=== PATIENT | male | born 1960 | race Hispanic/Latino ===

== ENCOUNTER 2020-12-18 11:44 | Inpatient (IN) | payer SELFPAY ==
[2020-12-18 12:46] LABS: Absolute Lymphocytes (CBC) 0.7 K/uL (0.7-4.9); Basophils % 0.5 % (0-1.3); Hematocrit 37.9 % (39.6-49.0); RBC Red Blood Cell Count 4.26 M/uL (4.33-5.43)
[2020-12-18] MEDS ORDERED: ALBUTEROL 2.5 MG/3 ML NEB SOL ONE (12:51)
[2020-12-18] MEDS ORDERED: IPRATROPIUM BROM 0.5MG/2.5ML ONE (12:51)
[2020-12-18] MEDS ORDERED: METHYLPREDNISOLONE 125 MG INJ ONE (12:51)
[2020-12-18 13:06] LABS: Protime INR 1.3
[2020-12-18] MEDS ORDERED: NA CHLORIDE 0.9% 500 ML ONE (13:09)
[2020-12-18] MEDS ORDERED: CEFTRIAXONE/SWI 1gm 1 GM/10 ML SYR ONE (13:09)
[2020-12-18 13:16] LABS: Blood Morphology Comment NOT SEEN (NOT SEEN); Platelet Estimate INCR
[2020-12-18 13:29] LABS: ALT/SGPT 111 U/L (12-78); AST/SGOT 75 U/L (15-37); Albumin 2.7 g/dL (3.4-5.0); Alkaline Phosphatase 95 U/L (45-117); Amylase 47 U/L (25-115); BUN Blood Urea Nitrogen 42 mg/dL (7-18); Bicarbonate 20 mmol/L (21-32); Bilirubin Direct 0.4 mg/dL (0-0.2); Bilirubin Total 0.8 mg/dL (0.2-1.0); CKMB Creatine Kinase MB < 1.0 ng/mL (0.3-3.6); Creatine Phosphokinase 50 U/L (39-308); Ferritin 1544.8 ng/mL (26-388); Glucose Level 177 mg/dL (74-106); Lipase 185 U/L (73-393); Potassium 3.7 mmol/L (3.5-5.1); Sodium Level 137 mmol/L (136-145); Troponin (Emerg Dept Use Only) 0.08 ng/mL (0.0-0.045)
--- NOTE | 2020-12-18 14:22 | RAD REPORT ---
EXAM DESCRIPTION: CT - Chest For Pe Angio - 12/18/2020 1:58 pm CLINICAL HISTORY: sob COMPARISON: None. TECHNIQUE: Dynamically enhanced axial 3 mm thick images of the chest were obtained during administra tion of <100> mL Isovue 370 IV contrast. Coronal and oblique reconstruction images were generated and reviewed. Exam utilizes a protocol for optimal evaluation of pulmonary arterial tree. Maximum intensity projections 3D imaging was utilized All CT scans are performed using dose optimization technique as appropriate and may include automated exposure control or mA/KV adjustment according to patient size. FINDINGS: A pulmonary embolus is not seen. A thoracic aortic aneurysm is not noted. A pleural effusion is not seen. Minimal pericardial effusion Marked bilateral ground-glass opacities. Fatty liver IMPRESSION: Negative for a pulmonary embolism. Marked bilateral ground-glass opacities likely Covid pneumonia
--- NOTE | 2020-12-18 14:22 | RAD REPORT ---
EXAM DESCRIPTION: [place] Single View12/18/2020 1:08 pm CLINICAL HISTORY: Chest pain COMPARISON: none FINDINGS: Marked bilateral pulmonary opacities. The heart is normal size IMPRESSION: Marked bilateral pulmonary opacities probably pneumonia
--- NOTE | 2020-12-18 14:33 | EDPHYS ---
Physician Documentation [facility] Rakesh Name: Yazan Regalado Age: 60 yrs Sex: Male : 1960 Arrival Date: 12/18/2020 Time: 11:49 Bed 3 Private MD: ED Physician Shin Carrillo HPI: 12/18 12:47 This 60 yrs old Male presents to ER via Wheelchair with complaints of Covid + pm1 and Shortness of Breath. 12:47 The patient has shortness of breath at rest. Onset: The symptoms/episode began/occurred pm1 2 day(s) ago. Duration: The symptoms are continuous. Associated signs and symptoms: Pertinent positives: cough and congestion, fever, fatigue. Severity of symptoms: in the emergency department the symptoms are worse. The patient has not experienced similar symptoms in the past. It is unknown whether or not the patient has recently seen a physician. Onset of cough, congestion, fatigue and fever 2 weeks ago. Tested positive for covid on 12/09/2020. SOB onset 2 days ago. No leg pain present. Reports pain to dorsum of left foot. Historical: - Allergies: 12:21 No Known Allergies; ss - Home Meds: 15:06 Amaryl 2 mg Oral tab 1 tab daily at 1500 [Active]; Edarbi 80 mg oral tab twice a day sv [Active]; finasteride 5 mg oral tab 1 tab once daily [Active]; autrin 600 mg daily [Active]; Janumet 50-1,000 mg oral tab 1 tab daily [Active]; xatral 10 mg daily [Active]; - PMHx: 12:21 Diabetes - NIDDM; High Cholesterol; Hypertension; ss - PSHx: 12:21 prostate CA; ss - Immunization history:: Adult Immunizations up to date. - Social history:: Smoking status: Patient denies any tobacco usage or history of. ROS: 12:47 Cardiovascular: Negative for chest pain, palpitations, and edema. pm1 12:47 Abdomen/GI: Negative for abdominal pain, nausea, vomiting, diarrhea, and constipation, Back: Negative for injury and pain, : Negative for injury, bleeding, discharge, and swelling. 12:47 Skin: Negative for injury, rash, and discoloration, Neuro: Negative for headache, weakness, numbness, tingling, and seizure. 12:47 Constitutional: Positive for fatigue, fever. 12:47 Respiratory: Positive for cough, shortness of breath. 12:47 MS/extremity: Positive for pain, of the dorsum of left foot, Negative for decreased range of motion, deformity. Exam: 12:47 Head/Face: Normocephalic, atraumatic. pm1 12:47 Skin: Warm, dry with normal turgor. Normal color with no rashes, no lesions, and no evidence of cellulitis. MS/ Extremity: Pulses equal, no cyanosis. Neurovascular intact. Full, normal range of motion. 12:47 Constitutional: The patient appears alert, awake, non-diaphoretic, non-toxic, well developed, well hydrated, well groomed, well nourished, Tachypneic 12:47 Cardiovascular: Rate: tachycardic, actual rate is 112 bpm, Rhythm: regular, Pulses: no pulse deficits are appreciated, Heart sounds: normal, normal S1and S2, Edema: is not appreciated. 12:47 Respiratory: mild respiratory distress is noted, Respirations: tachypnea, 28 Breath sounds: decreased breath sounds, that are mild, are located in both bases. 12:47 Abdomen/GI: Inspection: abdomen appears normal, Palpation: abdomen is soft and non-tender, in all quadrants. 12:47 Neuro: Exam negative for acute changes, Orientation: is normal, Mentation: is normal, Motor: is normal, moves all fours. Vital Signs: 12:17 Pulse Ox 66% on R/A; sv 12:21 BP 132 / 85; Pulse 112; Resp 28; Temp 98.0; Pulse Ox 82% on R/A; Height 5 ft. 6 in. ss (167.64 cm); Pain 6/10; 13:26 Pulse Ox 94% on 15% Non-rebreather mask; sv 14:12 BP 110 / 64; Pulse 104; Resp 30; Pulse Ox 89% on 15% Non-rebreather mask; sv 14:31 BP 119 / 72; Pulse 101; Resp 25; Pulse Ox 92% on 15% Non-rebreather mask; sv 15:07 BP 115 / 67; Pulse 90; Resp 28; Pulse Ox 92% on 15% Non-rebreather mask; sv MDM: 12:25 Patient medically screened. pm1 12:28 ED course: Sepsis IV bolus not given due to risk for pulmonary injury with pm1 administering too much fluids in covid-19 setting. Patient tested positive for covid. 12:33 ED course: No high flow oxygen available in the hospital per RT because we are wait pm1 list and hospital administration is aware. 14:28 Data reviewed: vital signs. pm1 14:28 Counseling: I had a detailed discussion with the patient and/or guardian regarding: the pm1 historical points, exam findings, and any diagnostic results supporting the discharge/admit diagnosis, lab results, radiology results, the need for further work-up and treatment in the hospital. 14:51 Physician consultation: Shin Sher MD was called at 14:51, was contacted at 14:51, pm1 regarding admission, patient's condition, and will see patient. 12/18 12:26 Order name: C-Reactive Protein pm1 12/18 12:26 Order name: D-Dimer pm12/18 12:26 Order name: Amylase, Serum pm12/18 12:26 Order name: Basic Metabolic Panel pm1 12/18 12:26 Order name: Blood Culture Adult (2) pm12/18 12:26 Order name: CBC with Diff pm1 12/18 12:26 Order name: Ckmb pm1 12/18 12:26 Order name: CPK pm1 12/18 12:26 Order name: Lactate pm12/18 12:26 Order name: LFT's pm12/18 12:26 Order name: Lipase pm1 12/18 12:26 Order name: Procalcitonin pm12/18 12:26 Order name: Protime (+inr) pm12/18 12:26 Order name: Ptt, Activated pm12/18 12:26 Order name: Troponin (emerg Dept Use Only) pm12/18 12:26 Order name: Urine Microscopic Only pm1 12/18 12:26 Order name: Ferritin; Complete Time: 14:27 pm1 12/18 12:26 Order name: Strep; Complete Time: 14:27 pm1 12/18 12:27 Order name: C-Reactive Protein; Complete Time: 14:27 EDMS 12/18 12:27 Order name: D-Dimer; Complete Time: 13:12 EDMS 12/18 12:27 Order name: Amylase; Complete Time: 14:27 EDMS 12/18 12:28 Order name: Basic Metabolic Panel; Complete Time: 14:27 EDMS 12/18 12:28 Order name: Blood Culture EDLA 12/18 12:28 Order name: CBC with Automated Diff; Complete Time: 14:27 EDMS 12/18 12:28 Order name: CKMB Creatine Kinase MB; Complete Time: 14:27 EDMS 12/18 12:28 Order name: Creatine Phosphokinase; Complete Time: 14:27 EDMS 12/18 12:28 Order name: Lactate; Complete Time: 13:12 EDMS 12/18 12:28 Order name: Liver (Hepatic) Function; Complete Time: 14:27 EDMS 12/18 12:28 Order name: Lipase; Complete Time: 14:27 EDLA 12/18 12:26 Order name: Chest Single View XRAY; Complete Time: 14:27 pm1 12/18 12:28 Order name: Procalcitonin; Complete Time: 14:27 EDLA 12/18 12:28 Order name: Protime (+INR); Complete Time: 13:12 EDLA 12/18 12:28 Order name: PTT, Activated Partial Thromb; Complete Time: 13:12 EDLA 12/18 12:28 Order name: Troponin (Emerg Dept Use Only); Complete Time: 14:27 EDLA 12/18 12:28 Order name: Urine Microscopic Only EDLA 12/18 13:13 Order name: CT Chest For PE Angio; Complete Time: 14:27 pm1 12/18 13:17 Order name: Manual Differential; Complete Time: 14:27 EDLA 12/18 14:44 Order name: COVID-19/FLU A+B; Complete Time: 16:16 EDLA 12/18 15:23 Order name: CONS Pharmacy Consult EDLA 12/18 15:23 Order name: CONS Physician Consult EDLA 12/18 15:23 Order name: Heart Healthy EDLA 12/18 15:23 Order name: C-Reactive Protein EDLA 12/18 15:23 Order name: C-Reactive Protein EDLA 12/18 15:23 Order name: CBC with Automated Diff EDLA 12/18 15:23 Order name: CBC with Automated Diff EDLA 12/18 15:23 Order name: Comprehensive Metabolic Panel EDLA 12/18 15:23 Order name: Comprehensive Metabolic Panel EDLA 12/18 15:23 Order name: D-Dimer EDLA 12/18 15:23 Order name: D-Dimer EDLA 12/18 15:23 Order name: Ferritin EDLA 12/18 15:23 Order name: Ferritin EDLA 12/18 15:23 Order name: Protime (+INR) EDLA 12/18 15:23 Order name: Protime (+INR) EDLA 12/18 15:23 Order name: PTT, Activated Partial Thromb EDLA 12/18 15:23 Order name: PTT, Activated Partial Thromb EDLA 12/18 12:26 Order name: Cardiac monitoring; Complete Time: 12:47 pm1 12/18 12:26 Order name: EKG - Nurse/Tech; Complete Time: 13:49 pm12/18 12:26 Order name: IV Saline Lock - Large Bore; Complete Time: 12:47 pm1 12/18 12:26 Order name: Labs collected and sent; Complete Time: 12:47 pm1 12/18 12:26 Order name: O2 Per Protocol; Complete Time: 12:47 pm1 12/18 12:26 Order name: O2 Sat Monitoring; Complete Time: 12:47 pm12/18 12:55 Order name: Droplet/Contact Precautions; Complete Time: 12:57 pm1 Administered Medications: 12:47 Drug: SOLU-Medrol 125 mg Route: IVP; Site: left antecubital; sv 13:48 Follow up: Response: No adverse reaction sv 12:47 Drug: Albuterol - atroVENT (3:1) (2.5 mg - 0.5 mg) 3 ml Route: Nebulizer; sv 13:48 Follow up: Response: No adverse reaction sv 13:26 Drug: NS 0.9% 500 ml Route: IV; Rate: bolus; Site: left antecubital; sv 14:58 Follow up: Response: No adverse reaction; IV Status: Completed infusion; IV Intake: sv 500ml 13:26 Drug: Rocephin 1 grams Route: IV; Rate: calculated rate; Site: left antecubital; sv 13:28 Follow up: Response: No adverse reaction; IV Status: Completed infusion; IV Intake: 10mlsv 14:58 Drug: Zithromax 500 mg Route: IVPB; Infused Over: 1 hrs; Site: left antecubital; sv 16:12 Follow up: Response: No adverse reaction; IV Status: Completed infusion; IV Intake: sv 250ml Disposition: 12/18/20 14:32 Hospitalization ordered by Shin Sher for Inpatient Admission. Preliminary diagnosis are Pneumonia, unspecified organism - ., Coronavirus infection, unspecified, Streptococcal pharyngitis. - Bed requested for Intensive Care Unit. - Status is Inpatient Admission. dh3 - Condition is Fair. - Problem is new. - Symptoms have improved. Addendum: 12/19/2020 18:29 Co-signature as Attending Physician, Shin Carrillo MD. m a2 Signatures: Dispatcher [employer] EDLA Sandra Blanco RN RN sv Woody, Diana, Felipa Engel RN, RN RN ss Manny Garcia, DRAFTER PLUMBING DRAFTER PLUMBING 1 Cristal Staples 3 Shin Carrillo MD MD ma2 Corrections: (The following items were deleted from the chart) 12/18 12:47 12:26 Accucheck ordered. pm1 sv 13:43 12:28 Influenza Screen (A \T\ B)+[id number].LAB.BRZ ordered. EDLA EDMS 16:37 14:32 Hospitalization Ordered by Shin Sher MD for Inpatient Admission. Preliminary dw diagnosis is Pneumonia, unspecified organism - .; Coronavirus infection, unspecified; Streptococcal pharyngitis. Bed requested for Telemetry/MedSurg (Inpatient). Status is Inpatient Admission. Condition is Fair. Problem is new. Symptoms have improved. pm1 17:23 16:37 12/18/2020 14:32 Hospitalization Ordered by Shin Sher MD for Inpatient dh3 Admission. Preliminary diagnosis is Pneumonia, unspecified organism - .; Coronavirus infection, unspecified; Streptococcal pharyngitis. Bed requested for Intensive Care Unit. Status is Inpatient Admission. Condition is Fair. Problem is new. Symptoms have improved. dw
--- NOTE | 2020-12-18 14:33 | ER ---
Nurse's Notes [facility] Rakesh Name: Yazan Regalado Age: 60 yrs Sex: Male : 1960 Arrival Date: 12/18/2020 Time: 11:49 Bed 3 Private MD: Diagnosis: Pneumonia, unspecified organism-.;Coronavirus infection, unspecified;Streptococcal pharyngitis Presentation: 12/18 12:21 Chief complaint: Patient states: Covid positive 12/09/20. SOB for 2 days. + L leg pain ss for 2 days. Coronavirus screen: Client denies travel out of the [place] in the last 14 days. congestion, cough unrelated to allergies, difficulty breathing, fatigue, fever, shortness of breath, Client presents with at least one sign or symptom that may indicate coronavirus-19. Standard/surgical mask placed on the client. Client reports previous positive COVID test result. Ebola Screen: Patient denies travel to an Ebola-affected area in the 21 days before illness onset. Initial Sepsis Screen: Does the patient meet any 2 criteria? RR > 20 per min. HR > 90 bpm. Yes Does the patient have a suspected source of infection? Yes: Productive cough/pneumonia. Risk Assessment: Do you want to hurt yourself or someone else? Patient reports no desire to harm self or others. Onset of symptoms was December 16, 2020. 12:21 Method Of Arrival: Wheelchair ss 12:21 Acuity: EVARISTO 2 ss Historical: - Allergies: 12:21 No Known Allergies; ss - Home Meds: 15:06 Amaryl 2 mg Oral tab 1 tab daily at 1500 [Active]; Edarbi 80 mg oral tab twice a day sv [Active]; finasteride 5 mg oral tab 1 tab once daily [Active]; autrin 600 mg daily [Active]; Janumet 50-1,000 mg oral tab 1 tab daily [Active]; xatral 10 mg daily [Active]; - PMHx: 12:21 Diabetes - NIDDM; High Cholesterol; Hypertension; ss - PSHx: 12:21 prostate CA; ss - Immunization history:: Adult Immunizations up to date. - Social history:: Smoking status: Patient denies any tobacco usage or history of. Screenin:30 Abuse screen: Denies threats or abuse. Denies injuries from another. Nutritional sv screening: No deficits noted. Tuberculosis screening: No symptoms or risk factors identified. Fall Risk None identified. Assessment: 12:15 General: Appears in no apparent distress. uncomfortable, well developed, Behavior is sv calm, cooperative, appropriate for age. General: Reports fatigue for >3 days. Pain: Complains of pain in throat Pain currently is 6 out of 10 on a pain scale. Neuro: Level of Consciousness is awake, alert, obeys commands, Oriented to person, place, time, situation, Moves all extremities. Full function. Cardiovascular: Patient's skin is warm and dry. Rhythm is sinus tachycardia. Respiratory: Reports shortness of breath on exertion cough that is non-productive, labored breathing Airway is patent Respiratory effort is even, labored, Respiratory pattern is symmetrical, tachypnea. Derm: Skin is intact, Skin is pink, warm \T\ dry. Musculoskeletal: Range of motion: intact in all extremities. 12:47 Reassessment: Patient appears in no apparent distress at this time. Patient and/or sv family updated on plan of care and expected duration. Pain level reassessed. Patient is alert, oriented x 3, equal unlabored respirations, skin warm/dry/pink. 13:26 Reassessment: Patient appears in no apparent distress at this time. Patient and/or sv family updated on plan of care and expected duration. Pain level reassessed. Patient is alert, oriented x 3, equal unlabored respirations, skin warm/dry/pink. 14:02 Reassessment: Patient appears in no apparent distress at this time. Patient and/or sv family updated on plan of care and expected duration. Pain level reassessed. Patient is alert, oriented x 3, equal unlabored respirations, skin warm/dry/pink. 15:07 Reassessment: Patient appears in no apparent distress at this time. Patient and/or sv family updated on plan of care and expected duration. Pain level reassessed. Patient is alert, oriented x 3, equal unlabored respirations, skin warm/dry/pink. Respiratory: Respiratory effort is even, unlabored, Respiratory pattern is symmetrical, tachypnea. 16:11 Reassessment: Patient appears in no apparent distress at this time. Patient and/or sv family updated on plan of care and expected duration. Pain level reassessed. Patient is alert, oriented x 3, equal unlabored respirations, skin warm/dry/pink. Patient states feeling better. 16:58 Reassessment: Patient appears in no apparent distress at this time. Patient and/or sv family updated on plan of care and expected duration. Pain level reassessed. Patient states feeling better. Vital Signs: 12:17 Pulse Ox 66% on R/A; sv 12:21 BP 132 / 85; Pulse 112; Resp 28; Temp 98.0; Pulse Ox 82% on R/A; Height 5 ft. 6 in. ss (167.64 cm); Pain 6/10; 13:26 Pulse Ox 94% on 15% Non-rebreather mask; sv 14:12 BP 110 / 64; Pulse 104; Resp 30; Pulse Ox 89% on 15% Non-rebreather mask; sv 14:31 BP 119 / 72; Pulse 101; Resp 25; Pulse Ox 92% on 15% Non-rebreather mask; sv 15:07 BP 115 / 67; Pulse 90; Resp 28; Pulse Ox 92% on 15% Non-rebreather mask; sv ED Course: 11:49 Patient arrived in ED. ds1 12:20 Manny Garcia NP is PHCP. pm1 12:20 Shin Carrillo MD is Attending Physician. pm1 12:20 Patient has correct armband on for positive identification. Placed in gown. Bed in low sv position. Call light in reach. Side rails up X 1. cookie breaker on. Pulse ox on. NIBP on. Door closed. Head of bed elevated. 12:20 First set of blood cultures drawn by me. sv 12:21 Arm band placed on Patient placed in an exam room, on a stretcher. ss 12:23 Triage completed. ss 12:30 Second set of blood cultures drawn by me. Inserted saline lock: 18 gauge in left sv antecubital area, using aseptic technique. Blood collected. Flushed left antecubital with 5 ml normal saline. 12:38 Sandra Blanco, [place] is Primary Nurse. sv 12:48 C-Reactive Protein Sent. sv 12:48 D-Dimer Sent. sv 12:48 Amylase, Serum Sent. sv 12:48 Basic Metabolic Panel Sent. sv 12:48 Blood Culture Adult (2) Sent. sv 12:48 CBC with Diff Sent. sv 12:48 Ckmb Sent. sv 12:48 CPK Sent. sv 12:48 Lactate Sent. sv 12:48 LFT's Sent. sv 12:48 Lipase Sent. sv 12:48 Procalcitonin Sent. sv 12:49 Protime (+inr) Sent. sv 12:49 Ptt, Activated Sent. sv 12:49 Troponin (emerg Dept Use Only) Sent. sv 12:50 X-ray(s) taken. sv 12:51 Chest Single View XRAY Sent. sv 13:08 Chest Single View XRAY In Process Unspecified. EDMS 13:10 Notified Nurse Practitioner and/or Physician [employer] of a critical lab result(s), ss [id number]. 13:10 Flu and/or RSV swab sent to lab. Strep swab sent to lab. sv 13:18 EKG done, by ED staff, reviewed by Shin Carrillo MD. ss 13:42 Flu and/or RSV swab sent to lab. Strep swab sent to lab. jp3 13:[address] via stretcher. sv 13:58 CT Chest For PE Angio In Process Unspecified. EDMS 14:[address]. sv 14:05 Awaiting lab results, Awaiting radiology results. sv 14:31 Shin Sher MD is Hospitalizing Provider. pm1 15:32 Awaiting bed assignment. sv 16:57 No provider procedures requiring assistance completed. Patient admitted, IV remains in sv place. intact. Administered Medications: 12:47 Drug: SOLU-Medrol 125 mg Route: IVP; Site: left antecubital; sv 13:48 Follow up: Response: No adverse reaction sv 12:47 Drug: Albuterol - atroVENT (3:1) (2.5 mg - 0.5 mg) 3 ml Route: Nebulizer; sv 13:48 Follow up: Response: No adverse reaction sv 13:26 Drug: NS 0.9% 500 ml Route: IV; Rate: bolus; Site: left antecubital; sv 14:58 Follow up: Response: No adverse reaction; IV Status: Completed infusion; IV Intake: sv 500ml 13:26 Drug: Rocephin 1 grams Route: IV; Rate: calculated rate; Site: left antecubital; sv 13:28 Follow up: Response: No adverse reaction; IV Status: Completed infusion; IV Intake: 10mlsv 14:58 Drug: Zithromax 500 mg Route: IVPB; Infused Over: 1 hrs; Site: left antecubital; sv 16:12 Follow up: Response: No adverse reaction; IV Status: Completed infusion; IV Intake: sv 250ml Intake: 13:28 IV: 10ml; Total: 10ml. sv 14:58 IV: 500ml; Total: 510ml. sv 16:12 IV: 250ml; Total: 760ml. sv Outcome: 14:32 Decision to Hospitalize by Provider. pm1 16:57 Admitted to ICU accompanied by tech, via stretcher, room 6, with oxygen, on monitor, sv with chart, Report called to Kell [place] 16:57 Condition: stable 16:57 Instructed on the need for admit. 17:23 Patient left the ED. 3 Signatures: Dispatcher [employer] Sandra Pederson RN Polly Rankin ds1 Felipa Oscar RN RN Manny Blanco, SPA DIRECTOR SPA DIRECTOR pm1 Cristal Staples 3 Jason Delgadillo 3 Corrections: (The following items were deleted from the chart) 13:42 13:42 COVID swab sent to lab. ca3 jp3
[2020-12-18 14:44] LABS: SARS-COV-2 RT PCR POSITIVE (NEGATIVE)
[2020-12-18] MEDS ORDERED: AZITHROMYCIN IV 500 MG in NA CHLORIDE 0.9% 250 ML IVPB ONE (15:00)
[2020-12-18] MEDS ORDERED: ACETAMINOPHEN 500 MG TAB PO PRN (15:16)
[2020-12-18] MEDS ORDERED: ONDANSETRON 4 MG/2 ML VIAL IV PRN (15:16)
[2020-12-18] MEDS ORDERED: MORPHINE 2 MG/ML SYR IV PRN (15:16)
[2020-12-18] MEDS: NA CHLORIDE 0.9% 1,000 ML IV SCH (16:00)
[2020-12-18] MEDS ORDERED: IVERMECTIN 3 MG TABLET PO ONE (16:00)
--- NOTE | 2020-12-18 20:36 | P.HP ---
Certification for Inpatient Patient admitted to: Inpatient With expected LOS: >2 Midnights Patient will require the following post-hospital care: None Practitioner: I am a practitioner with admitting privileges, knowledge of patient current condition, hospital course, and medical plan of care. Services: Services provided to patient in accordance with Admission requirements found in Title 42 Section 412.3 of the Code of Federal Regulations Patient History Date of Service: 12/18/20 Reason for admission: Shortness of breath/COVID-19 pneumonia History of Present Illness: Patient is a 60-year-old gentleman who came to the hospital with shortness of breath. Patient was found have COVID-19 pneumonia. Patient was started on 100% non-rebreather. Patient was started on IV steroids and was also given ivermectin. Patient will be admitted to ICU & he is requiring a large amount of oxygen. Patient will be continued with high-flow oxygen and we will get pulmonary consultation. Patient's history of diabetes and hypertension. Strict blood sugar and blood pressure control. Patient be admitted to the intensive care unit for further evaluation. Allergies No Known Allergies Allergy (Verified 12/18/20 15:45) Home Medications: Autrin 600 mg PO DAILY 12/18/20 Azilsartan Medoxomil [Edarbi] 80 mg PO BID 12/18/20 Finasteride [Proscar] 5 mg PO DAILY 12/18/20 Glimepiride [Amaryl] 2 mg PO DAILY 12/18/20 Sitagliptin Phos/Metformin HCl [Janumet 50-1,000 mg Tablet] 1 each PO DAILY 12/18/20 Xatral 10 mg PO DAILY 12/18/20 - Past Medical/Surgical History Has patient received pneumonia vaccine in the past: No Diabetic: Yes -: NIDDM -: HLD -: HTN -: Prostate CA in remission for 6 years -: throat tumor removal - Family History Mother Medical History: Heart disease, Hypertension, Lung disease, Diabetes Father Medical History: Heart disease, Hypertension, GI disease, Diabetes - Social History Smoking Status: Never smoker Alcohol use: Yes CD- Drugs: No Caffeine use: No Place of Residence: Home Review of Systems 10-point ROS is otherwise unremarkable Physical Examination - Vital Signs Temperature: 98.0 F Blood Pressure: 128/80 Pulse: 89 Respirations: 26 Pulse Ox (%): 94 - Physical Exam General: Alert, In no apparent distress, Oriented x3 HEENT: Atraumatic, PERRLA, Mucous membr. moist/pink, EOMI, Sclerae nonicteric Neck: Supple, 2+ carotid pulse no bruit, No LAD, Without JVD or thyroid abnormality Respiratory: Diminished, Rhonchi/gurgles Cardiovascular: Regular rate/rhythm, Normal S1 S2, No murmurs Gastrointestinal: Normal bowel sounds, Soft and benign, Non-distended, No tenderness Musculoskeletal: No clubbing, No swelling, No tenderness Integumentary: No rashes Neurological: Normal gait, Normal speech, Normal strength at 5/5 x4 extr, Normal tone, Normal affect Lymphatics: No axilla or inguinal lymphadenopathy - Studies Laboratory Data (last 24 hrs) 12/18/20 12:30: WBC 13.90 H, Hgb 12.4 L, Hct 37.9 L, Plt Count 442 H 12/18/20 12:30: Sodium 137, Potassium 3.7, BUN 42 H, Creatinine 1.21, Glucose 177 H, Total Bilirubin 0.8, AST 75 H, ALT 111 H, Alkaline Phosphatase 95, Amylase 47, Lipase 185 12/18/20 12:26: PT 15.4 H, INR 1.30, APTT 23.1 L Microbiology Data (last 24 hrs): 12/18/20 12:26 Throat Group A Streptococcus Rapid Screen - Final Assessment & Plan - Problems (Diagnosis) (1) Pneumonia due to COVID-19 virus Current Visit: Yes Status: Acute (2) Hypoxemia Current Visit: Yes Status: Acute (3) History of hypertension Current Visit: Yes Status: Acute (4) History of type 2 diabetes mellitus Current Visit: Yes Status: Acute - Plan 1. Continue with IV steroids 2. High-flow oxygen 3. Repeat chest x-ray is symptoms are progressively worsening 4. Ivermectin 5. Pulmonary consultation 6. Continue with albuterol inhaler therapy; may benefit from Remdesivir 7. O2 per protocol 8. Monitor LFTs 9. Repeat labs including D-dimer, ferritin, and CRP and LFTs 10. GI and DVT prophylaxis Discharge Plan: Home Plan to discharge in: Greater than 2 days - Advance Directives Does patient have a Living Will: No Does patient have a Durable POA for Healthcare: No - Code Status/Comfort Care Code Status Assessed: Yes Code Status: Full Code Critical Care: Yes Time Spent Managing PTS Care (In Minutes): 45
[2020-12-18] MEDS: FAMOTIDINE 20 MG/2 ML VIAL IV SCH (20:54)
[2020-12-18] MEDS: APIXABAN 5 MG TABLET PO SCH (20:54)
[2020-12-18] MEDS: METHYLPREDNISOLONE 125 MG INJ IV SCH (20:54)
[2020-12-18] MEDS ORDERED: GLUCAGON 1 MG/VIAL IM PRN (21:19)
[2020-12-18] MEDS ORDERED: D50W 25 GM/50 ML SYRINGE IV PRN (21:19)
[2020-12-18] MEDS: GUAIFENESIN/CODEINE 5ML UCUP PO PRN (21:38)
[2020-12-18] MEDS: INSULIN -REGULAR HUMAN 50 UNIT/0.5 ML ML SQ SCH (21:39)
[2020-12-18 21:49] LABS: Urine Appearance CLEAR; Urine Bilirubin NEGATIVE (NEG); Urine Blood NEGATIVE (NEG); Urine Color YELLOW; Urine Glucose 2+ (NEG); Urine Protein NEGATIVE (NEG); Urine Specific Gravity >=1.030 (1.005-1.030); Urine Urobilinogen 0.2 mg/dL (0.2-1.0); Urine pH 5.5 (5.0-7.0)
[2020-12-18 21:59] LABS: Urine Bacteria <20 /HPF (NONE SEEN); Urine RBC NONE SEEN /HPF (NONE SEEN)
[2020-12-19 05:13] LABS: Absolute Lymphocytes (CBC) 0.6 K/uL (0.7-4.9); Basophils % 0.3 % (0-1.3); Hematocrit 33.7 % (39.6-49.0); Lymphocytes % 5.6 % (15.3-44.8); MPV 8.1 fL (7.6-11.3)
[2020-12-19 05:45] LABS: Albumin 2.3 g/dL (3.4-5.0); Bilirubin Total 0.4 mg/dL (0.2-1.0); Ferritin 1544.8 ng/mL (26-388); Potassium 3.6 mmol/L (3.5-5.1); Protein, Total 7.2 g/dL (6.4-8.2)
[2020-12-19] MEDS: GUAIFENESIN/CODEINE 5ML UCUP PO PRN ×3 (05:46→21:10)
[2020-12-19] MEDS: NA CHLORIDE 0.9% 1,000 ML IV SCH (05:46)
[2020-12-19 06:04] LABS: Protime INR 1.5
[2020-12-19] MEDS: INSULIN -REGULAR HUMAN 50 UNIT/0.5 ML ML SQ SCH ×4 (08:44→21:08)
[2020-12-19] MEDS ORDERED: Remdesivir 200 MG in NA CHLORIDE 0.9% 250 ML IV ONE (08:45)
[2020-12-19] MEDS: APIXABAN 5 MG TABLET PO SCH ×2 (08:46→21:07)
[2020-12-19] MEDS: METHYLPREDNISOLONE 125 MG INJ IV SCH ×3 (08:46→21:09)
[2020-12-19] MEDS: FAMOTIDINE 20 MG/2 ML VIAL IV SCH ×2 (08:46→21:09)
[2020-12-19] MEDS ORDERED: INSULIN -REGULAR HUMAN 50 UNIT/0.5 ML ML SQ SCH ×2 (11:25→11:44)
[2020-12-19] MEDS ORDERED: FUROSEMIDE 20 MG/ 2ML VIAL IV ONE (12:42)
--- NOTE | 2020-12-19 12:44 | P.CNS ---
Date of Consult: 12/19/20 Reason for Consult: Respiratory failure from quick virus Chief Complaint: Shortness of breath/COVID-19 pneumonia History of Present Illness: Patient is 60 years of age admitted with shortness of breath and quick virus pneumonia is currently on high-flow oxygen has history of diabetes hypertension Still requiring high concentrations of oxygen Allergies No Known Allergies Allergy (Verified 12/18/20 15:45) Home Medications: Autrin 600 mg PO DAILY 12/18/20 Azilsartan Medoxomil [Edarbi] 80 mg PO BID 12/18/20 Finasteride [Proscar] 5 mg PO DAILY 12/18/20 Glimepiride [Amaryl] 2 mg PO DAILY 12/18/20 Sitagliptin Phos/Metformin HCl [Janumet 50-1,000 mg Tablet] 1 each PO DAILY 12/18/20 Xatral 10 mg PO DAILY 12/18/20 - Past Medical/Surgical History Diabetic: Yes -: NIDDM -: HLD -: HTN -: Prostate CA in remission for 6 years -: throat tumor removal - Family History Mother Medical History: Heart disease, Hypertension, Lung disease, Diabetes Father Medical History: Heart disease, Hypertension, GI disease, Diabetes - Social History Alcohol use: Yes CD- Drugs: No Caffeine use: No Place of Residence: Home Review of Systems is unable to be obtained Physical Examination Temp Pulse Resp BP Pulse Ox 97.3 F 81 20 124/78 91 12/19/20 12:00 12/19/20 12:00 12/19/20 12:00 12/19/20 12:00 12/19/20 12:00 General: Alert, Mild distress Respiratory: Clear to auscultation bilaterally, Diminished Laboratory Data (last 24 hrs) 12/18/20 12:30: WBC 13.90 H, Hgb 12.4 L, Hct 37.9 L, Plt Count 442 H 12/18/20 12:30: Sodium 137, Potassium 3.7, BUN 42 H, Creatinine 1.21, Glucose 177 H, Total Bilirubin 0.8, AST 75 H, ALT 111 H, Alkaline Phosphatase 95, Amylase 47, Lipase 185 12/18/20 12:26: PT 15.4 H, INR 1.30, APTT 23.1 L - Problems (1) Pneumonia due to COVID-19 virus Current Visit: Yes Status: Acute Plan: Patient is 60 years of age admitted with respiratory failure from quick virus white count normal pro calcitonin level elevated CT scan shows diffuse bilateral ground-glass changes consistent with pulmonary embolism change to p.o. level Floxin continue with high doses of steroids patient has had a dose of ivermectin 1 dose of Lasix increase Solu-Medrol to 3 times a day cultures negative
[2020-12-19] MEDS: levoFLOXacin 500 MG TAB PO SCH (13:07)
--- NOTE | 2020-12-19 15:58 | P.PN ---
Subjective Date of Service: 12/19/20 Chief Complaint: Shortness of breath/COVID-19 pneumonia Subjective: Other (Slight improvement noted) Physical Examination - Vital Signs Temperature: 97.3 F Blood Pressure: 129/90 Pulse: 86 Respirations: 26 Pulse Ox (%): 90 - Physical Exam General: Alert HEENT: Atraumatic Neck: Supple Respiratory: Other (On high-flow oxygen 90%) Cardiovascular: Normal pulses Neurological: Normal speech, Normal strength at 5/5 x4 extr, Normal tone, Normal affect - Studies Microbiology Data (last 24 hrs): 12/18/20 12:26 Throat Group A Streptococcus Rapid Screen - Final Medications List Reviewed: Yes Assessment & Plan Discharge Plan: Home Plan to discharge in: Greater than 2 days Physician Review Additional Text: Impression: Dyspnea secondary to acute respiratory failure with hypoxia related to bilateral COVID 19 pneumonia Diabetes mellitus type 2 with hyperglycemia Hypertension BPH Plan: Dyspnea secondary to acute respiratory failure with hypoxia related to bilateral COVID 19 pneumonia: Continue IV steroids. Patient on DVT prophylaxis. Discuss the possibility of initiating Remdesivir. Side effect profile and understanding of medication addressed in detail. Patient wishes to start medication. Continue high-flow oxygen. Continue to wean off nasal cannula. Encourage incentive spirometer. Encourage ambulation. Encourage protein. Case discussed with pulmonology. Continue to monitor lab closely. Monitor ferritin and CRP. Anticipate improvement over the next 72 hr. Diabetes mellitus type 2 with hyperglycemia: Restart home medication of glipizide, Januvia and metformin. Continue sliding scale. Consider basal insulin if blood sugars are still out of control. Hypertension: Blood pressure stable. Hold off on oral medication BPH: Restart medication Time Spent Managing Pts Care (In Minutes): 55
[2020-12-19] MEDS: METFORMIN HCL 500 MG TAB PO SCH (17:17)
[2020-12-20 05:41] LABS: Albumin 2.4 g/dL (3.4-5.0); Bilirubin Direct 0.2 mg/dL (0-0.2); Bilirubin Total 0.4 mg/dL (0.2-1.0); Ferritin 1645.8 ng/mL (26-388); Protein, Total 6.8 g/dL (6.4-8.2)
[2020-12-20] MEDS: GLIMEPIRIDE 2 MG TABLET PO SCH (08:13)
[2020-12-20] MEDS: FAMOTIDINE 20 MG/2 ML VIAL IV SCH ×2 (08:14→20:05)
[2020-12-20] MEDS: METHYLPREDNISOLONE 125 MG INJ IV SCH (08:14)
[2020-12-20] MEDS: APIXABAN 5 MG TABLET PO SCH ×2 (08:14→20:05)
[2020-12-20] MEDS: METFORMIN HCL 500 MG TAB PO SCH ×2 (08:14→16:51)
[2020-12-20] MEDS: levoFLOXacin 500 MG TAB PO SCH (08:14)
[2020-12-20] MEDS: SITAGLIPTIN PHOS 100 MG TAB PO SCH (08:14)
[2020-12-20] MEDS: FINASTERIDE 5 MG TAB PO SCH (08:14)
[2020-12-20] MEDS: INSULIN -REGULAR HUMAN 50 UNIT/0.5 ML ML SQ SCH ×4 (08:15→20:28)
--- NOTE | 2020-12-20 08:23 | P.PN ---
Subjective Date of Service: 12/20/20 Chief Complaint: Respiratory failure Subjective: Improving (Improving oxygen requirements have declined he is feeling well) Review of Systems General: Weakness Respiratory: Shortness of Breath Physical Examination - Vital Signs Temperature: 97.3 F Blood Pressure: 142/71 Pulse: 56 Respirations: 19 Pulse Ox (%): 90 - Studies Medications List Reviewed: Yes Assessment & Plan - Problems (Diagnosis) (1) Pneumonia due to COVID-19 virus Current Visit: Yes Status: Acute Plan: Respiratory failure oxygen requirements have been declining blood sugars elevated added multi vitamin repeat dose of ivermectin
[2020-12-20] MEDS ORDERED: IVERMECTIN 3 MG TABLET PO ONE (09:00)
[2020-12-20] MEDS: ASCORBIC ACID 500 MG TABLET PO SCH ×3 (09:20→20:05)
[2020-12-20] MEDS: ZINC SULFATE 220 MG CAP PO SCH (09:20)
[2020-12-20] MEDS: Remdesivir 100 MG in NA CHLORIDE 0.9% 250 ML IV SCH (09:20)
[2020-12-20] MEDS: THIAMINE HCL 100 MG TABLET PO SCH ×2 (09:21→20:05)
[2020-12-20] MEDS: GUAIFENESIN/CODEINE 5ML UCUP PO PRN ×3 (09:30→21:05)
--- NOTE | 2020-12-20 12:27 | P.PN ---
Subjective Date of Service: 12/20/20 Chief Complaint: Respiratory failure Subjective: Other (Slow improvement noted. Currently on high-flow at 75%) Physical Examination - Vital Signs Temperature: 97.3 F Blood Pressure: 114/60 Pulse: 89 Respirations: 23 Pulse Ox (%): 91 - Physical Exam General: Alert, Cooperative HEENT: Atraumatic Respiratory: Other (High-flow oxygen at 75%. Continued improvement noted) Cardiovascular: Normal pulses Neurological: Normal speech, Normal strength at 5/5 x4 extr, Normal tone, Normal affect - Studies Medications List Reviewed: Yes Assessment & Plan Discharge Plan: Home Plan to discharge in: Greater than 2 days Physician Review Additional Text: Impression: Dyspnea secondary to acute respiratory failure with hypoxia related to bilateral COVID 19 pneumonia Diabetes mellitus type 2 with hyperglycemia Hypertension BPH Plan: Dyspnea secondary to acute respiratory failure with hypoxia related to bilateral COVID 19 pneumonia: Continue IV steroids, Remdesivir, and supplements. Patient on DVT prophylaxis. Continue wean off high-flow oxygen to nasal cannula. Respiratory to continue weaning in process. Encourage incentive spirometer. Encourage ambulation. Encourage protein. Case discussed with pulmonology. Continue to monitor lab closely. Monitor ferritin and CRP. Anticipate improvement over the next 72 hr. Diabetes mellitus type 2 with hyperglycemia: Hemoglobin A1c 6.9. Continue home medication glipizide, Januvia and metformin. Continue sliding scale. Consider basal insulin if blood sugars are still out of control by tomorrow. Hypertension: Blood pressure stable. Hold off on oral medication BPH: Continue home medication Time Spent Managing Pts Care (In Minutes): 55
[2020-12-20] MEDS: METHYLPREDNISOLONE 40 MG INJ IV SCH ×2 (13:52→20:04)
[2020-12-20] MEDS: MELATONIN 5 MG TABLET PO SCH (20:05)
[2020-12-21] MEDS: GUAIFENESIN/CODEINE 5ML UCUP PO PRN ×2 (04:50→16:26)
[2020-12-21 05:40] LABS: Albumin 2.6 g/dL (3.4-5.0); Bilirubin Direct 0.2 mg/dL (0-0.2); Bilirubin Total 0.5 mg/dL (0.2-1.0); C-Reactive Protein 48.9 mg/L (<3.00); Ferritin 1340.7 ng/mL (26-388); Protein, Total 6.7 g/dL (6.4-8.2)
[2020-12-21] MEDS: INSULIN -REGULAR HUMAN 50 UNIT/0.5 ML ML SQ SCH ×4 (08:14→20:54)
[2020-12-21] MEDS: ASCORBIC ACID 500 MG TABLET PO SCH ×3 (08:14→20:54)
[2020-12-21] MEDS: FINASTERIDE 5 MG TAB PO SCH (08:14)
[2020-12-21] MEDS: APIXABAN 5 MG TABLET PO SCH ×2 (08:14→20:53)
[2020-12-21] MEDS: GLIMEPIRIDE 2 MG TABLET PO SCH (08:14)
[2020-12-21] MEDS: levoFLOXacin 500 MG TAB PO SCH (08:14)
[2020-12-21] MEDS: THIAMINE HCL 100 MG TABLET PO SCH ×2 (08:14→20:53)
[2020-12-21] MEDS: METFORMIN HCL 500 MG TAB PO SCH ×2 (08:14→17:03)
[2020-12-21] MEDS: SITAGLIPTIN PHOS 100 MG TAB PO SCH (08:15)
[2020-12-21] MEDS: FAMOTIDINE 20 MG/2 ML VIAL IV SCH (08:15)
[2020-12-21] MEDS: ZINC SULFATE 220 MG CAP PO SCH (08:16)
[2020-12-21] MEDS: METHYLPREDNISOLONE 40 MG INJ IV SCH ×3 (08:16→20:55)
--- NOTE | 2020-12-21 08:42 | P.PN ---
Subjective Date of Service: 12/21/20 Chief Complaint: Respiratory failure Subjective: Improving (Patient is doing better oxygen requirements decreasing) Review of Systems General: Weakness Respiratory: Shortness of Breath Physical Examination - Vital Signs Temperature: 97.1 F Blood Pressure: 101/69 Pulse: 67 Respirations: 16 Pulse Ox (%): 83 - Studies Medications List Reviewed: Yes Assessment & Plan - Problems (Diagnosis) (1) Pneumonia due to COVID-19 virus Current Visit: Yes Status: Acute Plan: Respiratory failure clinically improving continue to titrate O2 white count is declining
--- NOTE | 2020-12-21 09:06 | RAD REPORT ---
EXAM DESCRIPTION: RAD - Chest Single View - 12/21/2020 7:50 am CLINICAL HISTORY: Follow up COVID Chest pain. COMPARISON: Chest Single View dated 12/18/2020 FINDINGS: Portable technique limits examination quality. Moderate bilateral pulmonary opacities are noted, essentially stable since comparative study. The hea rt is upper limit normal in size. No displaced fractures. IMPRESSION: Stable chest since 12/18/2020.
[2020-12-21] MEDS: Remdesivir 100 MG in NA CHLORIDE 0.9% 250 ML IV SCH (09:36)
--- NOTE | 2020-12-21 09:55 | P.PN ---
Subjective Date of Service: 12/21/20 Chief Complaint: Respiratory failure Subjective: Other (Slow improvement noted) Physical Examination - Vital Signs Temperature: 97.1 F Blood Pressure: 94/56 Pulse: 117 Respirations: 28 Pulse Ox (%): 85 - Physical Exam General: Alert, Cooperative HEENT: Atraumatic Respiratory: Other (Currently on high-flow at 70% Fi02) Cardiovascular: Normal pulses, Regular rate/rhythm Neurological: Normal speech, Normal strength at 5/5 x4 extr, Normal tone, Normal affect - Studies Medications List Reviewed: Yes Assessment & Plan Discharge Plan: Home Plan to discharge in: 48 Hours Physician Review Additional Text: Impression: Dyspnea secondary to acute respiratory failure with hypoxia related to bilateral COVID 19 pneumonia Diabetes mellitus type 2 with hyperglycemia Hypertension BPH Plan: Dyspnea secondary to acute respiratory failure with hypoxia related to bilateral COVID 19 pneumonia: Slow improvement noted. Less oxygen requirement noted today. Currently on high-flow 70% Fi02. CRP and ferritin show improvement. Chest x-ray stable. Continue IV steroid, Remdesivir, and supplements. Patient on DVT prophylaxis-Eliquis. Continue to wean off high-flow oxygen to nasal cannula. Respiratory to continue weaning process. Encourage incentive spirometer. Encourage ambulation. Encourage proning. Case discussed with pulmonology who agrees with plan of care. Continue to monitor lab closely including ferritin and CRP. Anticipate improvement over the next 48 hr. Diabetes mellitus type 2 with hyperglycemia: Hemoglobin A1c 6.9. Continue home medication glipizide, Januvia and metformin. Continue sliding scale. Blood sugar stable Hypertension: Blood pressure stable. Hold off on oral medication BPH: Continue home medication Time Spent Managing Pts Care (In Minutes): 55
[2020-12-21] MEDS ORDERED: D50W 25 GM/50 ML VIAL IV PRN (14:46)
[2020-12-21] MEDS: LIDOCAINE 4% PATCH TOP SCH (17:10)
[2020-12-21] MEDS: FAMOTIDINE 20 MG TAB PO SCH (20:53)
[2020-12-21] MEDS: MELATONIN 5 MG TABLET PO SCH (20:54)
[2020-12-22 05:53] LABS: Albumin 2.4 g/dL (3.4-5.0); Bilirubin Direct 0.1 mg/dL (0-0.2); Bilirubin Total 0.5 mg/dL (0.2-1.0); C-Reactive Protein 26.5 mg/L (<3.00); Ferritin 963.1 ng/mL (26-388); Protein, Total 6.1 g/dL (6.4-8.2)
[2020-12-22] MEDS: FINASTERIDE 5 MG TAB PO SCH (08:42)
[2020-12-22] MEDS: SITAGLIPTIN PHOS 100 MG TAB PO SCH (08:42)
[2020-12-22] MEDS: ZINC SULFATE 220 MG CAP PO SCH (08:42)
[2020-12-22] MEDS: levoFLOXacin 500 MG TAB PO SCH (08:42)
[2020-12-22] MEDS: ASCORBIC ACID 500 MG TABLET PO SCH ×3 (08:42→20:31)
[2020-12-22] MEDS: LIDOCAINE 4% PATCH TOP SCH (08:42)
[2020-12-22] MEDS: GLIMEPIRIDE 2 MG TABLET PO SCH (08:42)
[2020-12-22] MEDS: METFORMIN HCL 500 MG TAB PO SCH ×2 (08:42→16:33)
[2020-12-22] MEDS: APIXABAN 5 MG TABLET PO SCH ×2 (08:42→20:31)
[2020-12-22] MEDS: FAMOTIDINE 20 MG TAB PO SCH ×2 (08:42→20:31)
[2020-12-22] MEDS: METHYLPREDNISOLONE 40 MG INJ IV SCH (08:43)
[2020-12-22] MEDS: INSULIN -REGULAR HUMAN 50 UNIT/0.5 ML ML SQ SCH ×4 (08:43→20:32)
[2020-12-22] MEDS: Remdesivir 100 MG in NA CHLORIDE 0.9% 250 ML IV SCH (08:43)
[2020-12-22] MEDS: GUAIFENESIN/CODEINE 5ML UCUP PO PRN (09:02)
--- NOTE | 2020-12-22 09:06 | P.PN ---
Subjective Date of Service: 12/22/20 Chief Complaint: Respiratory failure Subjective: Other (Patient is slowly improving. Patient on BiPAP at 60% Fi02.) Physical Examination - Vital Signs Temperature: 97.8 F Blood Pressure: 128/88 Pulse: 87 Respirations: 24 Pulse Ox (%): 88 - Studies Medications List Reviewed: Yes Assessment & Plan Discharge Plan: Home Plan to discharge in: 48 Hours Physician Review Additional Text: Physical Exam: Patient is alert, no acute distress Heart: Regular rate Lung: Patient currently on BiPAP at 60% FiO2. No distress noted GI: No abdominal pain. No distention noted Extremities: Good range of motion to the upper lower extremities without deficit. No edema to the lower extremities Impression: Dyspnea secondary to acute respiratory failure with hypoxia related to bilateral COVID 19 pneumonia Diabetes mellitus type 2 with hyperglycemia Hypertension BPH Plan: Dyspnea secondary to acute respiratory failure with hypoxia related to bilateral COVID 19 pneumonia: Patient continues to improve. Less oxygen requirement noted. Now on BiPAP 60% Fi02. Respiratory to continue to wean down to nasal cannula. Hopefully this can be done today. CRP and ferritin show improvement. Chest x-ray stable. Continue IV steroid, Remdesivir, and supplements. Patient on DVT prophylaxis-Eliquis. Encourage incentive spirometer. Encourage ambulation. Encourage proning. Will discuss with pulmonology. Continue to monitor lab closely including ferritin and CRP. Anticipate improvement over the next 24-48 hr. Diabetes mellitus type 2 with hyperglycemia: Hemoglobin A1c 6.9. Continue home medication glipizide, Januvia and metformin. Continue sliding scale. Blood sugar stable Hypertension: Blood pressure stable. Hold off on oral medication BPH: Continue home medication Time Spent Managing Pts Care (In Minutes): 55
[2020-12-22] MEDS: VITAMIN D 1000 UNIT TAB PO SCH (09:45)
[2020-12-22] MEDS: THIAMINE HCL 100 MG TABLET PO SCH ×2 (09:45→20:31)
--- NOTE | 2020-12-22 13:16 | P.PN ---
Subjective Date of Service: 12/22/20 Chief Complaint: Respiratory failure Subjective: Improving (Patient is improving oxygen requirements a declining) Review of Systems General: Weakness Respiratory: Shortness of Breath Physical Examination - Vital Signs Temperature: 97.8 F Blood Pressure: 145/100 Pulse: 89 Respirations: 21 Pulse Ox (%): 90 - Studies Medications List Reviewed: Yes Assessment & Plan - Problems (Diagnosis) (1) Pneumonia due to COVID-19 virus Current Visit: Yes Status: Acute Plan: Respiratory failure patient is improving continue to wean down to nasal cannula blood sugars reasonably controlled increase dose of sitagliptin
[2020-12-22] MEDS: METHYLPREDNISOLONE 125 MG INJ IV SCH ×2 (13:27→20:32)
[2020-12-22] MEDS: MELATONIN 5 MG TABLET PO SCH (20:31)
[2020-12-23 04:59] VITALS: BMI 33.7
[2020-12-23 05:43] LABS: Albumin 2.4 g/dL (3.4-5.0); Bilirubin Direct 0.2 mg/dL (0-0.2); Bilirubin Total 0.6 mg/dL (0.2-1.0); C-Reactive Protein 16.5 mg/L (<3.00); Ferritin 890.7 ng/mL (26-388); Protein, Total 6.2 g/dL (6.4-8.2)
[2020-12-23] MEDS: INSULIN -REGULAR HUMAN 50 UNIT/0.5 ML ML SQ SCH ×4 (07:45→20:59)
[2020-12-23] MEDS: LIDOCAINE 4% PATCH TOP SCH (07:46)
[2020-12-23] MEDS: METHYLPREDNISOLONE 125 MG INJ IV SCH ×3 (07:46→20:07)
[2020-12-23] MEDS: THIAMINE HCL 100 MG TABLET PO SCH ×2 (07:47→20:09)
[2020-12-23] MEDS: METFORMIN HCL 500 MG TAB PO SCH ×2 (07:47→17:02)
[2020-12-23] MEDS: FAMOTIDINE 20 MG TAB PO SCH ×2 (07:47→20:07)
[2020-12-23] MEDS: GLIMEPIRIDE 2 MG TABLET PO SCH (07:47)
[2020-12-23] MEDS: FINASTERIDE 5 MG TAB PO SCH (07:47)
[2020-12-23] MEDS: ZINC SULFATE 220 MG CAP PO SCH (07:47)
[2020-12-23] MEDS: ASCORBIC ACID 500 MG TABLET PO SCH ×3 (07:47→20:08)
[2020-12-23] MEDS: APIXABAN 5 MG TABLET PO SCH ×2 (07:48→20:05)
[2020-12-23] MEDS: SITAGLIPTIN PHOS 100 MG TAB PO SCH (07:48)
[2020-12-23] MEDS: VITAMIN D 1000 UNIT TAB PO SCH (07:48)
[2020-12-23] MEDS: Remdesivir 100 MG in NA CHLORIDE 0.9% 250 ML IV SCH (09:32)
[2020-12-23] MEDS: GUAIFENESIN/CODEINE 5ML UCUP PO PRN ×3 (09:37→20:59)
--- NOTE | 2020-12-23 11:02 | P.PN ---
Subjective Date of Service: 12/23/20 Chief Complaint: Respiratory failure Subjective: Improving (Patient improving oxygen requirements declining will try nasal cannula oxygen today feeling better) Review of Systems General: Weakness Respiratory: Shortness of Breath Physical Examination - Vital Signs Temperature: 97.2 F Blood Pressure: 116/75 Pulse: 93 Respirations: 7 Pulse Ox (%): 94 - Studies Medications List Reviewed: Yes Assessment & Plan - Problems (Diagnosis) (1) Pneumonia due to COVID-19 virus Current Visit: Yes Status: Acute Plan: R respiratory failure continue to improve weaned to nasal cannula oxygen possible discharge in 1 or 2 days labs reviewed white count is normal ferritin levels are declining
--- NOTE | 2020-12-23 15:38 | P.PN ---
Subjective Date of Service: 12/23/20 Chief Complaint: Respiratory failure Subjective: Improving Physical Examination - Vital Signs Temperature: 97.3 F Blood Pressure: 108/72 Pulse: 102 Respirations: 22 Pulse Ox (%): 96 - Studies Microbiology Data (last 24 hrs): 12/18/20 12:30 Blood - Blood Aerobic Blood Culture - Final No growth in 5 days. 12/18/20 12:30 Blood - Blood Anaerobic Blood Culture - Final No growth in 5 days. 12/18/20 12:20 Blood - Blood Aerobic Blood Culture - Final No growth in 5 days. 12/18/20 12:20 Blood - Blood Anaerobic Blood Culture - Final No growth in 5 days. Medications List Reviewed: Yes Assessment & Plan Discharge Plan: Home Plan to discharge in: 48 Hours Physician Review Additional Text: Physical Exam: Patient is alert, no acute distress Heart: Regular rate Lung: Patient currently on BiPAP at 60% FiO2. No distress noted GI: No abdominal pain. No distention noted Extremities: Good range of motion to the upper lower extremities without deficit. No edema to the lower extremities Impression: Dyspnea secondary to acute respiratory failure with hypoxia related to bilateral COVID 19 pneumonia Diabetes mellitus type 2 with hyperglycemia Hypertension BPH Plan: Dyspnea secondary to acute respiratory failure with hypoxia related to bilateral COVID 19 pneumonia: Slow improvement noted. Patient on BiPAP 60% Fi02. Respiratory to continue to wean down to nasal cannula. Hopefully this can be done today. CRP and ferritin show improvement. Chest x-ray stable. Continue IV steroid, Remdesivir, and supplements. Patient on DVT prophylaxis-Eliquis. Encourage incentive spirometer. Encourage ambulation. Encourage proning. Will discuss with pulmonology. Continue to monitor lab closely including ferritin and CRP. Anticipate improvement over the next 24-48 hr. Diabetes mellitus type 2 with hyperglycemia: Hemoglobin A1c 6.9. Continue home medication glipizide, Januvia and metformin. Continue sliding scale. Blood sugar stable Hypertension: Blood pressure stable. Hold off on oral medication BPH: Continue home medication Time Spent Managing Pts Care (In Minutes): 55
[2020-12-23] MEDS: MELATONIN 5 MG TABLET PO SCH (20:05)
[2020-12-24 04:13] VITALS: TEMP 97.3
[2020-12-24 06:21] LABS: Ferritin 801.4 ng/mL (26-388)
[2020-12-24] MEDS: METHYLPREDNISOLONE 125 MG INJ IV SCH ×2 (08:19→14:13)
[2020-12-24] MEDS: APIXABAN 5 MG TABLET PO SCH (08:20)
[2020-12-24] MEDS: GLIMEPIRIDE 2 MG TABLET PO SCH (08:20)
[2020-12-24] MEDS: ZINC SULFATE 220 MG CAP PO SCH (08:20)
[2020-12-24] MEDS: SITAGLIPTIN PHOS 100 MG TAB PO SCH (08:20)
[2020-12-24] MEDS: THIAMINE HCL 100 MG TABLET PO SCH (08:20)
[2020-12-24] MEDS: LIDOCAINE 4% PATCH TOP SCH (08:20)
[2020-12-24] MEDS: FINASTERIDE 5 MG TAB PO SCH (08:20)
[2020-12-24] MEDS: METFORMIN HCL 500 MG TAB PO SCH (08:20)
[2020-12-24] MEDS: ASCORBIC ACID 500 MG TABLET PO SCH ×2 (08:21→14:13)
[2020-12-24] MEDS: FAMOTIDINE 20 MG TAB PO SCH (08:21)
[2020-12-24] MEDS: INSULIN -REGULAR HUMAN 50 UNIT/0.5 ML ML SQ SCH ×2 (08:21→11:30)
[2020-12-24] MEDS: VITAMIN D 1000 UNIT TAB PO SCH (09:00)
[2020-12-24 11:14] VITALS: O2SAT 94
--- NOTE | 2020-12-24 12:31 | P.DS ---
Admission Date: 12/18/20 Discharge Date: 12/24/20 Primary Care Provider: none Disposition: ROUTINE DISCHARGE Discharge Condition: GOOD Reason for Admission: Respiratory failure Consultations: Pulmonary-Dr. Pelaez Procedures: COVID: Positive CT scan: FINDINGS: A pulmonary embolus is not seen. A thoracic aortic aneurysm is not noted. A pleural effusion is not seen. Minimal pericardial effusion Marked bilateral ground-glass opacities. Fatty liver IMPRESSION: Negative for a pulmonary embolism. Marked bilateral ground-glass opacities likely Covid pneumonia Follow up CXR: COMPARISON: Chest Single View dated 12/18/2020 FINDINGS: Portable technique limits examination quality. Moderate bilateral pulmonary opacities are noted, essentially stable since comparative study. The heart is upper limit normal in size. No displaced fractures. IMPRESSION: Stable chest since 12/18/2020. Medical Problem list: Dyspnea secondary to acute respiratory failure with hypoxia related to bilateral COVID 19 pneumonia Diabetes mellitus type 2 with hyperglycemia Hypertension BPH Fatty liver Brief History of Present Illness: 60-year-old gentleman came to the hospital with shortness of breath. Patient was found have COVID-19 pneumonia. Patient was started on 100% non- rebreather. Patient was admitted for treatment. Hospital Course: Patient presented with dyspnea secondary to acute respiratory failure with hypoxia related to bilateral COVID 19 pneumonia. His stay was prolonged requiring IV steroids, ivermectin, Remdesivir, and supplements. Patient has done well. Inflammatory markers improved. Respirations improved. Patient without significant shortness of breath at this time. Patient was seen and treated by pulmonology. At discharge patient able to move appropriately currently on 3 L per nasal cannula. At discharge patient will continue with 3 L per nasal cannula to maintain sats above 93%. Patient will need to limit his activities. At discharge patient will continue with prednisone 20 mg 1 pill twice daily for 7 days then 1 pill once daily for 7 days. The patient will be provided Tessalon Perles 1 pill 3 times a day as needed for cough and Pro air 2 puffs 3 times a day as needed for shortness of breath. The patient will also continue with supplementation including vitamin-C 500 mg 3 times a day, vitamin- D 2000 units daily, thiamine 100 mg twice daily, melatonin 5 mg at bedtime, and zinc 220 mg daily. At discharge patient will continue with aspirin 81 mg daily. Patient to maintain and monitor sats above 93%. Encourage incentive spirometer, ambulation and proning. Oxygen will be arranged prior to discharge. Patient on DVT prophylaxis-Eliquis. Encourage incentive spirometer. Encourage ambulation. Encourage proning. Patient will continue with CDC guidelines on COVID 19 isolation. Patient will continue with social distancing, face mask use, and hand washing. Patient will follow up with pulmonology within 1 week. Further recommendations and weaning of oxygen will be done by pulmonology. Recommend for the patient to establish care locally to establish care with a PCP to further address his condition. Recommend to recheck chest x-ray in 4-6 weeks to monitor resolution. Patient with diabetes mellitus type 2 with hyperglycemia. Hemoglobin A1c 6.9. Patient has done well during the course of his stay. Medications have been adjusted. At discharge patient will continue with Amaryl 2 mg daily and Januvia/metformin 50/100 mg 1 pill twice daily. Recommend to maintain blood sugar less than 140 fasting and less than 200 after meals. Further adjustment can be done by his PCP. Patient with history of hypertension. Patient previously on Edarbi. Blood pressures have been well controlled off medication. No need for Edarbi at discharge. Recommend to monitor blood pressure daily. Recommend to maintain blood pressure less than 130/80. If blood pressure is consistently are above 140/90 then he is to contact his PCP for further recommendation and treatment. Patient with BPH. At discharge patient will continue with Proscar 5 mg daily. Patient with fatty liver. Education provided. This can be further addressed as an outpatient with GI. This can be done with the help of his PCP. Vital Signs/Physical Exam: Temp Pulse Resp BP Pulse Ox 97.3 F 84 17 108/72 95 12/24/20 09:44 12/24/20 10:00 12/24/20 10:00 12/24/20 10:00 12/24/20 10:00 General: Alert, In no apparent distress, Oriented x3, Cooperative HEENT: Atraumatic Neck: Supple Respiratory: Clear to auscultation bilaterally, Normal air movement, Other (Currently on 3 L/min) Cardiovascular: Normal pulses, Regular rate/rhythm Gastrointestinal: No masses, No rebound, No guarding Neurological: Normal speech, Normal strength at 5/5 x4 extr, Normal tone, Normal affect Laboratory Data at Discharge: WBC 10.70 K/uL (4.3-10.9) D 12/19/20 04:47 Hgb 11.3 g/dL (13.6-17.9) L 12/19/20 04:47 Hct 33.7 % (39.6-49.0) L 12/19/20 04:47 Plt Count 385 K/uL (152-406) 12/19/20 04:47 PT 17.8 SECONDS (9.5-12.5) H 12/19/20 04:47 INR 1.50 12/19/20 04:47 APTT 22.3 SECONDS (24.3-36.9) L 12/19/20 04:47 Sodium 140 mmol/L (136-145) 12/19/20 04:47 Potassium 3.6 mmol/L (3.5-5.1) 12/19/20 04:47 BUN 36 mg/dL (7-18) H 12/19/20 04:47 Creatinine 1.02 mg/dL (0.55-1.3) 12/19/20 04:47 Glucose 233 mg/dL (74-106) H 12/19/20 04:47 Total Bilirubin 0.6 mg/dL (0.2-1.0) 12/23/20 05:02 AST 13 U/L (15-37) L 12/23/20 05:02 ALT 40 U/L (12-78) 12/23/20 05:02 Alkaline Phosphatase 77 U/L (45-117) 12/23/20 05:02 Amylase 47 U/L (25-115) 12/18/20 12:30 Lipase 185 U/L (73-393) 12/18/20 12:30 Home Medications: Finasteride [Proscar] 5 mg PO DAILY 12/18/20 Glimepiride [Amaryl*] 2 mg PO DAILY 12/18/20 Albuterol Sulfate [Proair Hfa] 2 puff IH TID PRN #1 hfa.aer.ad 12/24/20 Ascorbic Acid [Vitamin C*] 500 mg PO TID #90 tablet 12/24/20 Aspirin [Aspirin EC 81 MG] 81 mg PO DAILY #90 tablet. 12/24/20 Benzonatate [Tessalon Perle] 100 mg PO TID PRN #15 cap 12/24/20 Cholecalciferol (Vitamin D3) [Vitamin D 1000 Iu Tab*] 2,000 unit PO DAILY #60 tab 12/24/20 Melatonin 5 mg PO BEDTIME #30 tablet 12/24/20 Sitagliptin Phos/Metformin HCl [Janumet 50-1,000 mg Tablet] 1 each PO BID #60 12/24/20 Thiamine HCl [Vitamin B-1*] 100 mg PO BID #60 tablet 12/24/20 Zinc Sulfate [Zinc Sulfate*] 220 mg PO DAILY #30 cap 12/24/20 predniSONE [Prednisone*] 20 mg PO SEECOM #21 tab 12/24/20 New Medications: Aspirin [Aspirin EC 81 MG] 81 mg PO DAILY #90 tablet. Sitagliptin Phos/Metformin HCl [Janumet 50-1,000 mg Tablet] 1 each PO BID #60 Melatonin 5 mg PO BEDTIME #30 tablet predniSONE [Prednisone*] 20 mg PO SEECOM #21 tab Albuterol Sulfate [Proair Hfa] 2 puff IH TID PRN #1 hfa.aer.ad PRN Reason: Shortness Of Breath Benzonatate [Tessalon Perle] 100 mg PO TID PRN #15 cap PRN Reason: Cough Thiamine HCl [Vitamin B-1*] 100 mg PO BID #60 tablet Ascorbic Acid [Vitamin C*] 500 mg PO TID #90 tablet Cholecalciferol (Vitamin D3) [Vitamin D 1000 Iu Tab*] 2,000 unit PO DAILY #60 tab Zinc Sulfate [Zinc Sulfate*] 220 mg PO DAILY #30 cap Physician Discharge Instructions: Follow up with PCP in 1 week Patient presented with dyspnea secondary to acute respiratory failure with hypoxia related to bilateral COVID 19 pneumonia. His stay was prolonged requiring IV steroids, ivermectin, Remdesivir, and supplements. Patient has done well. Inflammatory markers improved. Respirations improved. Patient without significant shortness of breath at this time. Patient was seen and treated by pulmonology. At discharge patient able to move appropriately currently on 3 L per nasal cannula. At discharge patient will continue with 3 L per nasal cannula to maintain sats above 93%. Patient will need to limit his activities. At discharge patient will continue with prednisone 20 mg 1 pill twice daily for 7 days then 1 pill once daily for 7 days. The patient will be provided Tessalon Perles 1 pill 3 times a day as needed for cough and Pro air 2 puffs 3 times a day as needed for shortness of breath. The patient will also continue with supplementation including vitamin-C 500 mg 3 times a day, vitamin- D 2000 units daily, thiamine 100 mg twice daily, melatonin 5 mg at bedtime, and zinc 220 mg daily. At discharge patient will continue with aspirin 81 mg daily. Patient to maintain and monitor sats above 93%. Encourage incentive spirometer, ambulation and proning. Oxygen will be arranged prior to discharge. Patient on DVT prophylaxis-Eliquis. Encourage incentive spirometer. Encourage ambulation. Encourage proning. Patient will continue with CDC guidelines on COVID 19 isolation. Patient will continue with social distancing, face mask use, and hand washing. Patient will follow up with pulmonology within 1 week. Further recommendations and weaning of oxygen will be done by pulmonology. Recommend for the patient to establish care locally to establish care with a PCP to further address his condition. Recommend to recheck chest x-ray in 4-6 weeks to monitor resolution. Patient with diabetes mellitus type 2 with hyperglycemia. Hemoglobin A1c 6.9. Patient has done well during the course of his stay. Medications have been adjusted. At discharge patient will continue with Amaryl 2 mg daily and Januvia/metformin 50/100 mg 1 pill twice daily. Recommend to maintain blood sugar less than 140 fasting and less than 200 after meals. Further adjustment can be done by his PCP. Patient with history of hypertension. Patient previously on Edarbi. Blood pressures have been well controlled off medication. No need for Edarbi at discharge. Recommend to monitor blood pressure daily. Recommend to maintain blood pressure less than 130/80. If blood pressure is consistently are above 140/90 then he is to contact his PCP for further recommendation and treatment. Patient with BPH. At discharge patient will continue with Proscar 5 mg daily. Patient with fatty liver. Education provided. This can be further addressed as an outpatient with GI. This can be done with the help of his PCP. Diet: ADA Activity: Ad mariam Followup: NONE,NONE [Primary Care Provider] - Time spent managing pt's care (in minutes): 55
[2020-12-24 14:28] VITALS: BP 135/89
== END 2020-12-24 14:25 | disposition home or self-care (01) | DRG 177 ==
LOC: ER 11:44 → ERHOLD 15:32 → 3RD-ICU 16:58
PROVIDERS: ADMIT Hospitalist; ATTEND Family Medicine
PROC: XW033E5 Introduction of Remdesivir Anti-infective into Peripheral Vein, Percutaneous Approach, New Technology Group 5 (ICD-10-PCS; principal; 2020-12-19)
PROC: 5A09457 Assistance with Respiratory Ventilation, 24-96 Consecutive Hours, Continuous Positive Airway Pressure (ICD-10-PCS; 2020-12-21)
DX: U07.1 COVID-19 (principal); J12.82 Pneumonia due to coronavirus disease 2019; J96.01 Acute respiratory failure with hypoxia; N40.0 Benign prostatic hyperplasia without lower urinary tract symptoms; E11.65 Type 2 diabetes mellitus with hyperglycemia; K76.0 Fatty (change of) liver, not elsewhere classified; I10 Essential (primary) hypertension; Z85.46 Personal history of malignant neoplasm of prostate; Z79.84 Long term (current) use of oral hypoglycemic drugs; Z79.899 Other long term (current) drug therapy
CPT/HCPCS: 0240U; 36415; 71045; 71275; 80048; 80053; 80076; 81001; 82150; 82550; 82553; 82728; 82947; 83036; 83605; 83690; 84145; 84484; 85025; 85379; 85610; 85730; 86140; 87040; 87081; 93005; 94002; 94003; 94760; 96361; 96365; 96375; 97110; 97116; 97161; 97530; 99285; J0456; J0696; J1940; J2920; J2930; J7030; J7040; J7050; Q9967